=== PATIENT | female | born 1990 | race American Indian/Alaskan Native ===

== ENCOUNTER 2017-01-11 09:55 | Emergency (ER) | payer MEDICAID ==
[2017-01-11 10:22] LABS: Basophils % (Auto) 0.4 % (0.0-1.8); Eosinophils % (Auto) 0.3 % (0.0-4.3); Hematocrit 36.4 % (30.3-42.9); Hemoglobin 12.1 gm/dl (10.1-14.3); Mean Corpuscular HGB Conc 33 % (30-34); Mean Corpuscular Volume 77 fl (79-97); Platelet Count 247 K/mm3 (140-440); Red Blood Count 4.75 M/mm3 (3.65-5.03); Red Cell Distribution Width 15.9 % (13.2-15.2); White Blood Count 10.7 K/mm3 (4.5-11.0)
[2017-01-11 10:28] LABS: Mean Corpuscular Hemoglobin 26 pg (28-32)
[2017-01-11 10:39] LABS: Alanine Aminotransferase 17 units/L (7-56); Albumin 3.6 g/dL (3.9-5); Albumin/Globulin Ratio 1.2 %; Alkaline Phosphatase 66 units/L (35-129); Anion Gap 17 mmol/L; BUN/Creatinine Ratio 13; Blood Urea Nitrogen 4 mg/dL (7-17); Carbon Dioxide 23 mmol/L (22-30); Glucose 78 mg/dL (65-100); Lipase 15 units/L (13-60); Potassium 3.8 mmol/L (3.6-5.0); Sodium 137 mmol/L (137-145); Total Protein 6.5 g/dL (6.3-8.2)
[2017-01-11 11:29] LABS: Bacteria,Urine 1+ /HPF (Negative); Bilirubin,Urine NEG (Negative); Blood,Urine SM (Negative); Ketones,Urine TR mg/dL (Negative); Leukocyte Esterase,Urine MOD (Negative); Mucus,Urine FEW /HPF; Nitrite,Urine NEG (Negative); Protein,Urine <15 mg/dL mg/dL (Negative); Urobilinogen,Urine < 2.0 mg/dL (<2.0)
[2017-01-11] MEDS ORDERED: TYLENOL PO ONE (12:38)
[2017-01-11] MEDS ORDERED: MACROBID PO ONE (12:39)
--- NOTE | 2017-01-11 12:40 | Emergency Department Report ---
ED General Adult HPI - General Chief complaint: Abdominal Pain Stated complaint: PREG, ABDOMONAL PAIN Time Seen by Provider: 01/11/17 12:30 Source: patient Mode of arrival: Ambulatory Limitations: No Limitations - History of Present Illness Initial comments: Patient is a 27-year-old female at around 12 weeks presents with abdominal pain. Patient is complaining of suprapubic pain. She is plain of cramping that is a 6 out of 10 she says she has not tried anything over-the- counter for she states that sometimes she has some pressure. She denies having any vaginal bleeding or vaginal discharge. Patient also denies having any nausea or vomiting. Nothing seems to make the pain better and nothing makes it worse. Patient has had a in her first due to her baby being breech. Patient has not had any care at all and has not been dictated by an ultrasound. - Related Data Previous Rx's Medication Instructions Recorded Last Taken Type Acetaminophen 1,000 mg PO Q6HR PRN #30 tablet 01/11/17 Unknown Rx Nitrofurantoin [place]/M-Cryst 100 mg PO Q12HR #14 capsule 01/11/17 Unknown Rx [Macrobid CAP] Allergies Allergy/AdvReac Type Severity Reaction Status Date / Time No Known Allergies Allergy Unverified 01/11/17 09:59 ED Review of Systems ROS: Stated complaint: PREG, ABDOMONAL PAIN Other details as noted in HPI Constitutional: denies: chills, fever Eyes: denies: eye pain, eye discharge, vision change ENT: denies: ear pain, throat pain Respiratory: denies: cough, shortness of breath, wheezing Cardiovascular: denies: chest pain, palpitations Endocrine: no symptoms reported Gastrointestinal: as per HPI. denies: abdominal pain, nausea, diarrhea Genitourinary: as per HPI, urgency. denies: dysuria, discharge Musculoskeletal: denies: back pain, joint swelling, arthralgia Skin: denies: rash, lesions Neurological: denies: headache, weakness, paresthesias Psychiatric: denies: anxiety, depression Hematological/Lymphatic: denies: easy bleeding, easy bruising ED Past Medical Hx - Past Medical History Previous Medical History?: Yes Additional medical history: UTI - Surgical History Past Surgical History?: Yes Additional Surgical History: x 1 - Social History Smoking Status: Former Smoker Substance Use Type: Other - Medications Home Medications: Home Medications Medication Instructions Recorded Confirmed Last Taken Type Acetaminophen 1,000 mg PO Q6HR PRN #30 tablet 01/11/17 Unknown Rx Nitrofurantoin [place]/M-Cryst 100 mg PO Q12HR #14 capsule 01/11/17 Unknown Rx [Macrobid CAP] ED Physical Exam - General Limitations: No Limitations General appearance: alert, in no apparent distress - Head Head exam: Present: atraumatic, normocephalic - Eye Eye exam: Present: normal appearance - ENT ENT exam: Present: mucous membranes moist - Neck Neck exam: Present: normal inspection - Respiratory Respiratory exam: Present: normal lung sounds bilaterally. Absent: respiratory distress - Cardiovascular Cardiovascular Exam: Present: regular rate, normal rhythm. Absent: systolic murmur, diastolic murmur, rubs, gallop - GI/Abdominal GI/Abdominal exam: Present: soft, normal bowel sounds - Extremities Exam Extremities exam: Present: normal inspection - Back Exam Back exam: Present: normal inspection - Neurological Exam Neurological exam: Present: alert, oriented X3 - Psychiatric Psychiatric exam: Present: normal affect, normal mood - Skin Skin exam: Present: warm, dry, intact, normal color. Absent: rash ED Course Vital Signs 01/11/17 01/11/17 01/11/17 10:00 14:55 15:00 Temperature 98.2 F 98.6 F Pulse Rate 87 83 81 Respiratory 18 14 14 Rate Blood Pressure 109/64 Blood Pressure 120/75 111/74 [Right] O2 Sat by Pulse 100 98 98 Oximetry 01/11/17 01/11/17 15:43 16:15 Temperature 98.5 F Pulse Rate 79 Respiratory 16 Rate Blood Pressure 123/84 Blood Pressure 123/84 [Right] O2 Sat by Pulse 100 98 Oximetry ED Medical Decision Making - Lab Data Result diagrams: 01/11/17 10:10 01/11/17 10:10 Lab Results 01/11/17 01/11/17 01/11/17 Range/Units 10:10 10:10 10:48 WBC 10.7 (4.5-11.0) K/mm3 RBC 4.75 (3.65-5.03) M/mm3 Hgb 12.1 (10.1-14.3) gm/dl Hct 36.4 (30.3-42.9) % MCV 77 L (79-97) fl MCH 26 L (28-32) pg MCHC 33 (30-34) % RDW 15.9 H (13.2-15.2) % Plt Count 247 (140-440) K/mm3 Lymph % (Auto) 24.3 (13.4-35.0) % [place] % (Auto) 8.1 H (0.0-7.3) % Eos % (Auto) 0.3 (0.0-4.3) % Baso % (Auto) 0.4 (0.0-1.8) % Lymph # 2.6 (1.2-5.4) K/mm3 [place] # 0.9 H (0.0-0.8) K/mm3 Eos # 0.0 (0.0-0.4) K/mm3 Baso # 0.0 (0.0-0.1) K/mm3 Seg Neutrophils % 66.9 (40.0-70.0) % Seg Neutrophils # 7.2 (1.8-7.7) K/mm3 Sodium 137 (137-145) mmol/L Potassium 3.8 (3.6-5.0) mmol/L Chloride 101.0 (98-107) mmol/L Carbon Dioxide 23 (22-30) mmol/L Anion Gap 17 mmol/L BUN 4 L (7-17) mg/dL Creatinine 0.3 L (0.7-1.2) mg/dL Estimated GFR > 60 ml/min BUN/Creatinine Ratio 13 % Glucose 78 (65-100) mg/dL Calcium 9.0 (8.4-10.2) mg/dL Total Bilirubin 0.20 (0.1-1.2) mg/dL AST 22 (5-40) units/L ALT 17 (7-56) units/L Alkaline Phosphatase 66 (35-129) units/L Total Protein 6.5 (6.3-8.2) g/dL Albumin 3.6 L (3.9-5) g/dL Albumin/Globulin Ratio 1.2 % Lipase 15 (13-60) units/L HCG, Qual (Negative) HCG, Quant (0-4) mIU/mL Urine Color Yellow (Yellow) Urine Turbidity Clear (Clear) Urine pH 6.0 (5.0-7.0) Ur Specific [place] 1.008 (1.003-1.030) Urine Protein <15 mg/dl (Negative) mg/dL Urine Glucose (UA) Neg (Negative) mg/dL Urine Ketones Tr (Negative) mg/dL Urine Blood Sm (Negative) Urine Nitrite Neg (Negative) Urine Bilirubin Neg (Negative) Urine Urobilinogen < 2.0 (<2.0) mg/dL Ur Leukocyte Esterase Mod (Negative) Urine WBC (Auto) 6.0 (0.0-6.0) /HPF Urine RBC (Auto) 1.0 (0.0-6.0) /HPF U Epithel Cells (Auto) 5.0 (0-13.0) /HPF Urine Bacteria (Auto) 1+ (Negative) /HPF Urine Mucus Few /HPF 01/11/17 01/11/17 Range/Units 13:01 13:51 WBC (4.5-11.0) K/mm3 RBC (3.65-5.03) M/mm3 Hgb (10.1-14.3) gm/dl Hct (30.3-42.9) % MCV (79-97) fl MCH (28-32) pg MCHC (30-34) % RDW (13.2-15.2) % Plt Count (140-440) K/mm3 Lymph % (Auto) (13.4-35.0) % [place] % (Auto) (0.0-7.3) % Eos % (Auto) (0.0-4.3) % Baso % (Auto) (0.0-1.8) % Lymph # (1.2-5.4) K/mm3 [place] # (0.0-0.8) K/mm3 Eos # (0.0-0.4) K/mm3 Baso # (0.0-0.1) K/mm3 Seg Neutrophils % (40.0-70.0) % Seg Neutrophils # (1.8-7.7) K/mm3 Sodium (137-145) mmol/L Potassium (3.6-5.0) mmol/L Chloride (98-107) mmol/L Carbon Dioxide (22-30) mmol/L Anion Gap mmol/L BUN (7-17) mg/dL Creatinine (0.7-1.2) mg/dL Estimated GFR ml/min BUN/Creatinine Ratio % Glucose (65-100) mg/dL Calcium (8.4-10.2) mg/dL Total Bilirubin (0.1-1.2) mg/dL AST (5-40) units/L ALT (7-56) units/L Alkaline Phosphatase (35-129) units/L Total Protein (6.3-8.2) g/dL Albumin (3.9-5) g/dL Albumin/Globulin Ratio % Lipase (13-60) units/L HCG, Qual Positive (Negative) HCG, Quant 77327 H (0-4) mIU/mL Urine Color (Yellow) Urine Turbidity (Clear) Urine pH (5.0-7.0) Ur Specific [place] (1.003-1.030) Urine Protein (Negative) mg/dL Urine Glucose (UA) (Negative) mg/dL Urine Ketones (Negative) mg/dL Urine Blood (Negative) Urine Nitrite (Negative) Urine Bilirubin (Negative) Urine Urobilinogen (<2.0) mg/dL Ur Leukocyte Esterase (Negative) Urine WBC (Auto) (0.0-6.0) /HPF Urine RBC (Auto) (0.0-6.0) /HPF U Epithel Cells (Auto) (0-13.0) /HPF Urine Bacteria (Auto) (Negative) /HPF Urine Mucus /HPF - Radiology Data Radiology results: report reviewed, image reviewed ultrasound: Shows viable intrauterine at 14 weeks and 4 days in breech lie - Medical Decision Making Chief medical diagnosis: UTI Differential diagnosis: , ectopic , round ligament pain I will give patient oral Tylenol, CBC, CMP, ultrasound and UA Patient's UA shows some signs concerning for infection considering the patient' s having pelvic pain I will treat on the side of caution and sent patient with Macrobid prescription and give her oral dose of Macrobid today. Discussed outpatient she agrees. Patient's ultrasound shows a 14 week fetus she has not had any care I will give her follow-up with an [employer] and I will send her with Tylenol to go. Discussed outpatient she agrees additional verbal discharge instructions were given. Critical care attestation.: If time is entered above; I have spent that time in minutes in the direct care of this critically ill patient, excluding procedure time. ED Disposition Clinical Impression: Abdominal cramping affecting Qualifiers: Weeks of gestation: 14 weeks Qualified Code(s): Z3A.14 - 14 weeks gestation of UTI (urinary tract infection) Qualifiers: Urinary tract infection type: acute cystitis Hematuria presence: without hematuria Qualified Code(s): N30.00 - Acute cystitis without hematuria Disposition: TO HOME OR SELFCARE Is pt being admited?: No Does the pt Need Aspirin: No Condition: Stable Instructions: (ED), Abdominal Pain (ED) Prescriptions: Acetaminophen 1,000 mg PO Q6HR PRN #30 tablet PRN Reason: Pain Nitrofurantoin [place]/M-Cryst [Macrobid CAP] 100 mg PO Q12HR #14 capsule Referrals: JOHN RINCON MD [Staff Physician] - 3-5 Days PRIMARY CARE, [Primary Care Provider] - 3-5 Days
--- NOTE | 2017-01-11 14:51 | Ultrasound Report ---
OB ULTRASOUND GREATER THAN 14 WEEKS INDICATION: Abdominal pain, pelvic cramping. 3 months . COMPARISON: None similar at this institution. TECHNIQUE: Transabdominal grayscale ultrasound with Doppler interrogation. Gestation: Elder Position: Breech Amniotic Fluid: WNL (< 24 weeks, subjective) Placenta: Fundal; approximately 4.6 x 4.2 cm anterior fibroid also suspected, image 8. Placental Grade: 0 Heart Rate: 159 BPM Cervical length: 3.3 cm (Normal > 3 cm) It is too early for a anatomical survey BPD: 2.7 cm = 14 w 6 d HC: 10.2 cm = 14 w 6 d AC: 7.8 cm = 14 w 2 d FL: 1.4 cm = 14 w 1 d HC/AC Ratio: 1.3 Cephalic Index: 85.1 Clinical age = 12 w 5 d EDC: 07/21/2017 (per outside ultrasound) US Gest. Age = 14 w 4 d EDC: 07/08/2017 CONCLUSION: Single, viable intrauterine gestation with ultrasound estimated age of 14 weeks and 4 days and EDC of 07/08/2017, currently in breech lie with details, as above. An anterior uterine fibroid also noted. Please also correlate clinically for approximately 2 weeks discrepancy with the estimated clinical age per outside ultrasound. Thank you for the opportunity to participate in this patient's care.
[2017-01-11 16:17] VITALS: BP 123/84
== END 2017-01-11 16:10 | disposition home or self-care (01) ==
LOC: ED 09:55
DX: O23.31 Infections of other parts of urinary tract in pregnancy, first trimester (principal); N30.00 Acute cystitis without hematuria; R10.9 Unspecified abdominal pain; Z3A.14 14 weeks gestation of pregnancy; Z87.891 Personal history of nicotine dependence; Z87.440 Personal history of urinary (tract) infections
CPT/HCPCS: 36415; 76805; 80053; 81001; 83690; 84702; 84703; 85025

== ENCOUNTER 2017-04-22 10:25 | Outpatient (CLI) | payer MEDICAID ==
[2017-04-22] MEDS ORDERED: LACTATED RINGERS 1,000 ML ONE (11:04)
[2017-04-22] MEDS ORDERED: LACTATED RINGERS 500 ML IV ONE (11:19)
[2017-04-22 11:47] LABS: Bacteria,Urine 1+ /HPF (Negative); Bilirubin,Urine NEG (Negative); Blood,Urine SM (Negative); Color,Urine Yellow (Yellow); Mucus,Urine FEW /HPF; Nitrite,Urine NEG (Negative); Protein,Urine <15 mg/dL mg/dL (Negative); Urobilinogen,Urine < 2.0 mg/dL (<2.0)
[2017-04-22 12:02] VITALS: BP 117/68
== END 2017-04-22 12:17 | disposition home or self-care (01) ==
LOC: TRG 10:25
PROVIDERS: ATTEND Obstetrics & Gynecology Gynecology
DX: Z34.92 Encounter for supervision of normal pregnancy, unspecified, second trimester (principal); Z3A.27 27 weeks gestation of pregnancy
CPT/HCPCS: 59025; 81001; 96360; J7120

== ENCOUNTER 2018-05-16 18:21 | Emergency (ER) | payer OTHER, MEDICAID ==
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
[2018-05-16 19:28] VITALS: BP 138/90
[2018-05-16 20:31] LABS: HCG Qualitative,Urine Negative (Negative)
[2018-05-16 20:34] LABS: Bilirubin,Urine NEG (Negative); Blood,Urine SM (Negative); Color,Urine Yellow (Yellow); Mucus,Urine 3+ /HPF; Urobilinogen,Urine < 2.0 mg/dL (<2.0)
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
[2018-05-16] MEDS ORDERED: NORCO 5/325 PO ONE (23:05)
== END 2018-05-16 23:23 | disposition home or self-care (01) ==
LOC: ED 18:21
DX: S05.12XA Contusion of eyeball and orbital tissues, left eye, initial encounter (principal); N39.0 Urinary tract infection, site not specified; W22.11XA Striking against or struck by driver side automobile airbag, initial encounter; Y93.89 Activity, other specified; Y99.8 Other external cause status; Y92.410 Unspecified street and highway as the place of occurrence of the external cause
CPT/HCPCS: 70450; 72100; 72125; 81001; 81025

== ENCOUNTER 2019-11-20 21:50 | Emergency (ER) | payer MEDICAID, OTHER ==
[2019-11-20 22:35] VITALS: BP 114/79
[2019-11-20 23:26] LABS: Basophils % (Auto) 0.4 % (0.0-1.8); Eosinophils % (Auto) 0.6 % (0.0-4.3); Hematocrit 34.9 % (30.3-42.9); Hemoglobin 11.4 gm/dl (10.1-14.3); Lymphocytes # (Auto) 2.9 K/mm3 (1.2-5.4); Lymphocytes % (Auto) 33.7 % (13.4-35.0); Mean Corpuscular HGB Conc 33 % (30-34); Mean Corpuscular Volume 78 fl (79-97); Monocytes # (Auto) 0.6 K/mm3 (0.0-0.8); Monocytes % (Auto) 7.4 % (0.0-7.3); Platelet Count 299 K/mm3 (140-440); Red Blood Count 4.47 M/mm3 (3.65-5.03); Red Cell Distribution Width 17.7 % (13.2-15.2)
[2019-11-20 23:54] LABS: Alanine Aminotransferase 10 units/L (7-56); Albumin 4.3 g/dL (3.9-5); Blood Urea Nitrogen 8 mg/dL (7-17); Calcium 9.6 mg/dL (8.4-10.2); Hemolysis Index 2
[2019-11-20 23:58] LABS: BUN/Creatinine Ratio 13
[2019-11-21 00:25] LABS: Bacteria,Urine 1+ /HPF (Negative); Bilirubin,Urine NEG (Negative); Blood,Urine MOD (Negative); Color,Urine Yellow (Yellow); Mucus,Urine 3+ /HPF; Protein,Urine <15 mg/dL mg/dL (Negative); Urobilinogen,Urine < 2.0 mg/dL (<2.0)
[2019-11-21] MEDS ORDERED: diphenhydrAMINE 50 MG/ML VIAL IV ONE (05:36)
[2019-11-21] MEDS ORDERED: SODIUM CHLORIDE 0.9% 1000 ML 1,000 ML IV ONE (05:36)
[2019-11-21] MEDS ORDERED: METOCLOPRAMIDE 10 MG/2 ML INJ IV ONE (05:36)
[2019-11-21] MEDS ORDERED: ACETAMINOPHEN 500 MG TAB PO ONE (05:36)
--- NOTE | 2019-11-21 06:59 | Ultrasound Report ---
EXAMINATION: Obstetrical Ultrasound INDICATION: Pelvic pain in early COMPARISON: None FINDINGS: There is a single, living intrauterine . [place]-rump length = 2.0 cm = 8 weeks, 4 day(s). heart rate is 163 beats per minute. Evaluation of the adnexal regions demonstrates a 4 cm simple cyst associated with the right adnexa. T he left adnexa appears within normal limits. No free pelvic fluid is visualized. IMPRESSION: 1. Single living intrauterine with an estimated gestational age of 8 weeks 4 days. 2. Simple right adnexal cyst. Signer Name: Dee Gómez MD Signed: 11/21/2019 6:55 AM Workstation Name: [id number]
--- NOTE | 2019-11-21 07:19 | Emergency Department Report ---
ED Abdominal Pain HPI - General Chief Complaint: Abdominal Pain Stated Complaint: ABD PAIN DIZZINESS Time Seen by Provider: 11/21/19 05:34 Source: patient Mode of arrival: Ambulatory Limitations: No Limitations - History of Present Illness Initial Comments: 29-year-old -[place] female presents to the emergency room complaining of right lower quadrant abdominal pain with nausea and vomiting and dizziness x1 week. Patient reports that she suffers from fibroids monthly with her cycle. Her last known menstrual period was 10/16/2019. She is 2 para 2. Patient reports that she had 2 C-sections with her last pregnancies. She has a history of preeclampsia with her second and gestational diabetes with her first . Patient denies any other past medical history takes no medications on a daily basis and has no known drug allergies. MD Complaint: abdominal pain Onset/Timin -: week(s) Migration to: suprapubic Severity scale (0 -10): 3 Quality: cramping Consistency: intermittent Associated Symptoms: nausea, vomiting, other (Dizziness) - Related Data Previous Rx's Medication Instructions Recorded Last Taken Type Acetaminophen 1,000 mg PO Q6HR PRN #30 tablet 01/11/17 Unknown Rx Ketorolac [Toradol] 10 mg PO Q6H PRN #15 tablet 05/16/18 Unknown Rx Nitrofurantoin Monohyd/M-Cryst 100 mg PO BID #14 capsule 05/16/18 Unknown Rx [Macrobid 100 mg Capsule] methOCARBAMOL [Robaxin TAB] 750 mg PO Q8H PRN #14 tablet 05/16/18 Unknown Rx Nitrofurantoin Hodgeman/M-Cryst 100 mg PO Q12HR #14 capsule 11/21/19 Unknown Rx [Macrobid CAP] Vit-Fe Fumar-FA [ 1 tab PO QDAY #90 tablet 11/21/19 Unknown Rx Vitamin] Allergies Allergy/AdvReac Type Severity Reaction Status Date / Time No Known Allergies Allergy Verified 04/22/17 10:56 ED Review of Systems ROS: Stated complaint: ABD PAIN DIZZINESS Other details as noted in HPI Comment: All other systems reviewed and negative ED Past Medical Hx - Past Medical History Previous Medical History?: Yes Hx Hypertension: No Hx Diabetes: No Hx Deep Vein Thrombosis: No Hx Renal Disease: No Hx Sickle Cell Disease: No Hx Seizures: No Hx Asthma: No Hx HIV: No Additional medical history: Uterinf Fibroids, Pre-eclampsia - Surgical History Past Surgical History?: Yes Additional Surgical History: x 2 - Social History Smoking Status: Never Smoker Substance Use Type: None - Medications Home Medications: Home Medications Medication Instructions Recorded Confirmed Last Taken Type Acetaminophen 1,000 mg PO Q6HR PRN #30 tablet 01/11/17 Unknown Rx Ketorolac [Toradol] 10 mg PO Q6H PRN #15 tablet 05/16/18 Unknown Rx Nitrofurantoin Monohyd/M-Cryst 100 mg PO BID #14 capsule 05/16/18 Unknown Rx [Macrobid 100 mg Capsule] methOCARBAMOL [Robaxin TAB] 750 mg PO Q8H PRN #14 tablet 05/16/18 Unknown Rx Nitrofurantoin Hodgeman/M-Cryst 100 mg PO Q12HR #14 capsule 11/21/19 Unknown Rx [Macrobid CAP] Vit-Fe Fumar-FA [ 1 tab PO QDAY #90 tablet 11/21/19 Unknown Rx Vitamin] ED Physical Exam - General Limitations: No Limitations General appearance: alert, in no apparent distress - Head Head exam: Present: atraumatic, normocephalic - Eye Eye exam: Present: normal appearance - ENT ENT exam: Present: mucous membranes moist - Respiratory Respiratory exam: Present: normal lung sounds bilaterally. Absent: respiratory distress - Cardiovascular Cardiovascular Exam: Present: regular rate, normal rhythm. Absent: systolic murmur, diastolic murmur, rubs, gallop - GI/Abdominal GI/Abdominal exam: Present: soft, normal bowel sounds - Extremities Exam Extremities exam: Present: normal inspection, full ROM - Back Exam Back exam: Present: normal inspection, full ROM - Neurological Exam Neurological exam: Present: alert, oriented X3, normal gait - Psychiatric Psychiatric exam: Present: normal affect, normal mood - Skin Skin exam: Present: warm, dry, intact, normal color. Absent: rash ED Course Vital Signs 11/20/19 22:31 Temperature 98.4 F Pulse Rate 82 Respiratory 16 Rate Blood Pressure 114/79 O2 Sat by Pulse 100 Oximetry - Reevaluation(s) Reevaluation #1: 11/21/19 07:26 Patient reported to me that she feels much better after having fluids and antinausea medication. ED Medical Decision Making - Lab Data Result diagrams: 11/20/19 23:09 11/20/19 23:09 Laboratory Tests 11/20/19 11/20/19 11/20/19 23:04 23:09 23:09 WBC 8.7 RBC 4.47 Hgb 11.4 Hct 34.9 MCV 78 L MCH 26 L MCHC 33 RDW 17.7 H Plt Count 299 Lymph % (Auto) 33.7 Hodgeman % (Auto) 7.4 H Eos % (Auto) 0.6 Baso % (Auto) 0.4 Lymph # 2.9 Hodgeman # 0.6 Eos # 0.0 Baso # 0.0 Seg Neutrophils % 57.9 Seg Neutrophils # 5.0 Sodium 137 Potassium 3.6 Chloride 100.0 Carbon Dioxide 24 Anion Gap 17 BUN 8 Creatinine 0.6 Estimated GFR > 60 BUN/Creatinine Ratio 13 Glucose 99 Calcium 9.6 Total Bilirubin 0.20 AST 16 ALT 10 Alkaline Phosphatase 51 Total Protein 7.7 Albumin 4.3 Albumin/Globulin Ratio 1.3 Lipase 19 HCG, Qual Urine Color Yellow Urine Turbidity Slightly-cloudy Urine pH 5.0 Ur Specific Singer 1.020 Urine Protein <15 mg/dl Urine Glucose (UA) Neg Urine Ketones Tr Urine Blood Mod Urine Nitrite Neg Urine Bilirubin Neg Urine Urobilinogen < 2.0 Ur Leukocyte Esterase Lg Urine WBC (Auto) 31.0 H Urine RBC (Auto) 13.0 U Epithel Cells (Auto) 12.0 Urine Bacteria (Auto) 1+ Urine Mucus 3+ Blood Type 11/20/19 11/21/19 23:09 Unknown WBC RBC Hgb Hct MCV MCH MCHC RDW Plt Count Lymph % (Auto) Hodgeman % (Auto) Eos % (Auto) Baso % (Auto) Lymph # Hodgeman # Eos # Baso # Seg Neutrophils % Seg Neutrophils # Sodium Potassium Chloride Carbon Dioxide Anion Gap BUN Creatinine Estimated GFR BUN/Creatinine Ratio Glucose Calcium Total Bilirubin AST ALT Alkaline Phosphatase Total Protein Albumin Albumin/Globulin Ratio Lipase HCG, Qual Positive Urine Color Urine Turbidity Urine pH Ur Specific Singer Urine Protein Urine Glucose (UA) Urine Ketones Urine Blood Urine Nitrite Urine Bilirubin Urine Urobilinogen Ur Leukocyte Esterase Urine WBC (Auto) Urine RBC (Auto) U Epithel Cells (Auto) Urine Bacteria (Auto) Urine Mucus Blood Type A POSITIVE - Radiology Data Radiology results: report reviewed Referring Physician:DAREN SCHULERPatient Name:TWIN Muñoz LETTPatient ID:[id number] of :[id number]:FemaleAccession:[id number] Date:[id number] Status:Finalized Findings [facility] [address] [place] [id number] Ultrasound Report Signed Patient: TWIN MOORE MR#: [id number] : 1990 Acct:[id number] Age/Sex: 29 / F ADM Date: 11/20/19 Loc: ED Attending Dr: Ordering Physician: DAREN SCHULER NP Date of Service: 11/21/19 Procedure(s): US OB <= 14 weeks fetus Accession Number(s): [id number] cc: DAREN SCHULER NP EXAMINATION: Obstetrical Ultrasound INDICATION: Pelvic pain in early COMPARISON: None FINDINGS: There is a single, living intrauterine . [place]-rump length = 2.0 cm = 8 weeks, 4 day(s). heart rate is 163 beats per minute. Evaluation of the adnexal regions demonstrates a 4 cm simple cyst associated with the right adnexa. The left adnexa appears within normal limits. No free pelvic fluid is visualized. IMPRESSION: 1. Single living intrauterine with an estimated gestational age of 8 weeks 4 days. 2. Simple right adnexal cyst. Signer Name: Dee Gómez MD Signed: 11/21/2019 6:55 AM Workstation Name: [id number] Transcribed By: EB Dictated By: Dee Gómez MD Electronically Authenticated By: Dee Gómez MD Signed Date/Time: 11/21/19654 DD/ 1 TD/TT: - Medical Decision Making 29-year-old -[place] female presents to the emergency room complaining of right lower quadrant abdominal pain with nausea and vomiting and dizziness x1 week. Patient reports that she suffers from fibroids monthly with her cycle. Her last known menstrual period was 10/16/2019. She is 2 para 2. Patient reports that she had 2 C-sections with her last pregnancies. She has a history of preeclampsia with her second and gestational diabetes with her first . Patient denies any other past medical history takes no medications on a daily basis and has no known drug allergies. Patient has a positive test. Ultrasound showed that she has an 8-week 4-day intrauterine gestation. Labs are stable. Urinalysis shows that she has a urinary tract infection we will treat with Macrobid 100 mg p.o. twice daily for 10 days. Patient is referred to [facility] in the community. Critical care attestation.: If time is entered above; I have spent that time in minutes in the direct care of this critically ill patient, excluding procedure time. ED Disposition Clinical Impression: Nausea and vomiting in , UTI (urinary tract infection) during Qualifiers: Weeks of gestation: 8 weeks Qualified Code(s): Z3A.08 - 8 weeks gestation of Disposition: DC-01 TO HOME OR SELFCARE Is pt being admited?: No Does the pt Need Aspirin: No Condition: Stable Instructions: Abdominal Pain (ED), Hyperemesis Gravidarum (ED) Additional Instructions: Positive test. Urinalysis shows that you have a urinary tract infection. I would like for you to increase your fluid intake advance her diet as tolerated. For the nausea vomiting try [id number] Unisom and B6 vitamins. Take vitamin B6 once a day and Unisom twice a day as needed for nausea and vomiting. It is very important for you to follow-up with a [facility]. I recommend you given them a call today since you are high risk patient. Prescriptions: Nitrofurantoin Hodgeman/M-Cryst [Macrobid CAP] 100 mg PO Q12HR #14 capsule Vit-Fe Fumar-FA [ Vitamin] 1 tab PO QDAY #90 tablet Referrals: [facility] [Primary Care Provider] - 3-5 Days [facility] [Provider Group] - 3-5 Days [facility] [Provider Group] - 3-5 Days [facility] [Provider Group] - 3-5 Days Forms: Work/School Release Form(ED)
== END 2019-11-21 07:41 | disposition home or self-care (01) ==
LOC: ED 21:50
DX: O21.8 Other vomiting complicating pregnancy (principal); O23.41 Unspecified infection of urinary tract in pregnancy, first trimester; Z3A.08 8 weeks gestation of pregnancy; Z79.899 Other long term (current) drug therapy
CPT/HCPCS: 36415; 76801; 80053; 81001; 83690; 84702; 84703; 85025; 86900; 86901; 87086; 96361; 96374; 96375; 99284; J1200; J2765; J7030

== ENCOUNTER 2020-06-12 13:42 | Outpatient (CLI) | payer OTHER ==
[2020-06-12 14:17] VITALS: BP 127/82
[2020-06-12] MEDS ORDERED: LACTATED RINGERS 1,000 ML IV ONE (14:32)
[2020-06-12] MEDS ORDERED: TERBUTALINE 1 MG/1 ML INJ SUB-Q SCH (15:00)
[2020-06-12 16:02] LABS: Bacteria,Urine 1+ /HPF (Negative); Bilirubin,Urine NEG (Negative); Blood,Urine NEG (Negative); Color,Urine Yellow (Yellow); Mucus,Urine FEW /HPF; Urobilinogen,Urine < 2.0 mg/dL (<2.0)
[2020-06-12] MEDS ORDERED: ceFAZolin/NS 1 GM/50 ML 1 GM/50 ML BAG IV ONE (16:36)
== END 2020-06-12 17:30 | disposition home or self-care (01) ==
LOC: TRG 13:42 → APU 13:43 → TRG 17:30
PROVIDERS: ATTEND Obstetrics & Gynecology
DX: O47.03 False labor before 37 completed weeks of gestation, third trimester (principal); Z3A.35 35 weeks gestation of pregnancy
CPT/HCPCS: 81001; 87086